=== PATIENT | male | born 1975 | race Native Hawaiian/Other Pacific Islander ===

== ENCOUNTER 2016-09-15 08:58 | Observation (INO) | payer BC, MEDICAID ==
[2016-09-15 09:03] VITALS: BMI 25.5
--- NOTE | 2016-09-15 09:25 | ED PDOC ---
Arrival/HPI - General Time Seen by Provider: 09/15/16 09:07 Historian: Patient - History of Present Illness Narrative History of Present Illness (Text): 09/15/16 09:02 Josh Hunt is a 41 year old male complaining of witnessed sinus pause on telemetry prior to arrival, requiring telemetry monitoring. Patient was seated in the recovery room of cardiology lab post-stress test for evaluation of occasional upper chest, when patient began to feel syncopal for about one minute. Patient denies ever losing consciousness. Patient's heart rate lowered significantly, code blue was called on the floor. Patient was brought to emergency department for further evaluation. Patient is currently asymptomatic and denies any other complaint at this time. PMD: Dr. Nolasco Time/Duration: Prior to Arrival Symptom Onset: Sudden Symptom Course: Improving Activities at Onset: Rest Context: Other (Recovery Room of Cardiology stress lab) Past Medical History - Provider Review Nursing Documentation Reviewed: Yes Family/Social History - Physician Review Nursing Documentation Reviewed: Yes Family/Social History: No Known Family HX Allergies/Home Meds Allergies/Adverse Reactions: Allergies No Known Allergies Allergy (Verified 09/15/16 08:52) Home Medications: Home Meds Medication Instructions Recorded Confirmed No Known Home Med 09/15/16 09/15/16 Review of Systems - Physician Review All systems were reviewed & negative as marked: Yes - Review of Systems Constitutional: Other (sinus pause). absent: Fevers, Night Sweats Eyes: absent: Vision Changes ENT: absent: Hearing Changes Respiratory: absent: SOB Cardiovascular: absent: Chest Pain Gastrointestinal: absent: Abdominal Pain Genitourinary Male: absent: Dysuria, Frequency Musculoskeletal: absent: Arthralgias Skin: absent: Rash Neurological: absent: Headache, Dizziness Endocrine: absent: Diaphoresis Hemo/Lymphatic: absent: Adenopathy Psychiatric: absent: Anxiety Physical Exam - Physical Exam Narrative Physical Exam (Text): Constitutional: No acute distress. Head: Normocephalic. Atraumatic. Eyes: PERRL. ENT: Moist mucous membranes. Neck: Supple. Cardiovascular: Regular rate. Chest: No tenderness. Respiratory: Clear to auscultation bilaterally. GI: Soft. Nontender. Nondistended. Back: No CVA tenderness. Musculoskeletal: No tenderness or swelling of extremities. Skin: No rash. Neurologic: Alert, no focal deficit. Vital Signs Temp Pulse Resp BP Pulse Ox 09/15/16 13:26 90 18 121/76 96 09/15/16 11:17 81 18 112/74 98 09/15/16 09:19 97.9 F 82 18 131/76 97 Medical Decision Making ED Course and Treatment: 09/15/16 09:28 Impression: 41 year old male presents emergency department with witnessed sinus pause on telemetry, requiring telemetry monitoring. currently asymptomatic. Plan: -- Chest X-ray -- Labs -- Reassess and disposition Progress Notes: EKG: Ordered, reviewed, and independently interpreted the EKG. Rate : 80 BPM Rhythm : NSR Interpretation : No ST-segment elevations or depressions, no T-wave inversions, normal intervals. 09/15/16 11:14 Chest X-ray: Dictator : Maury Ribeiro MD FINDINGS: LUNGS:No active pulmonary disease. PLEURA:No significant pleural effusion identified, no pneumothorax apparent. CARDIOVASCULAR:Normal. OSSEOUS STRUCTURES:No significant abnormalities. VISUALIZED UPPER ABDOMEN:Normal. OTHER FINDINGS:None. IMPRESSION: No active disease. - Lab Interpretations Lab Results: 09/15/16 09:10 09/15/16 09:10 Lab Results 09/15/16 09:24: POC Glucose (mg/dL) 85 09/15/16 09:10: Sodium 138, Potassium 4.1, Chloride 103, Carbon Dioxide 24, Anion Gap 15, BUN 18, Creatinine 1.0, Est GFR ( Amer) > 60, Est GFR (Non- Af Amer) > 60, Random Glucose 100, Calcium 9.2, Total Bilirubin 1.5 H, AST 27, ALT 38, Alkaline Phosphatase 58, Total Creatine Kinase 127, Troponin I < 0.01, Total Protein 7.1, Albumin 4.4, Globulin 2.7, Albumin/Globulin Ratio 1.6 09/15/16 09:10: WBC 4.9, RBC 5.91, Hgb 15.1, Hct 45.4, MCV 76.8 L, MCH 25.5, MCHC 33.3, RDW 14.6 H, Plt Count 207, MPV 9.7, Gran % 52.3, Lymph % (Auto) 38.4 H, [place] % (Auto) 6.4 H, Eos % (Auto) 2.5, Baso % (Auto) 0.4, Gran # 2.55, Lymph # 1.9, [place] # 0.3, Eos # 0.1, Baso # 0.02 I have reviewed the lab results: Yes - RAD Interpretation Radiology Orders: 09/15/16 09:07 CHEST PORTABLE [RAD] Stat - Scribe Statement The provider has reviewed the documentation as recorded by the Scribe Usha Oscar Provider Scribe Attestation: All medical record entries made by the Scribe were at my direction and personally dictated by me. I have reviewed the chart and agree that the record accurately reflects my personal performance of the history, physical exam, medical decision making, and the department course for this patient. I have also personally directed, reviewed, and agree with the discharge instructions and disposition. Disposition/Present on Arrival - Present on Arrival Any Indicators Present on Arrival: No - Disposition Have Diagnosis and Disposition been Completed?: Yes Diagnosis: Sinus pause Disposition: HOSPITALIZED Disposition Time: 10:03 Patient Plan: Observation, Telemetry Condition: FAIR
--- NOTE | 2016-09-15 09:39 | RAD ---
HISTORY: lightheadedness COMPARISON: No prior. FINDINGS: LUNGS: No active pulmonary disease. PLEURA: No significant pleural effusion identified, no pneumothorax apparent. CARDIOVASCULAR: Normal. OSSEOUS STRUCTURES: No significant abnormalities. VISUALIZED UPPER ABDOMEN: Normal. OTHER FINDINGS: None. IMPRESSION: No active disease.
[2016-09-15 09:40] LABS: BASO # 0.02 K/mm3 (0.0-2.0); BASO % 0.4 % (0.0-3.0); EOS # 0.1 (0.0-0.7); EOS % 2.5 % (1.5-5.0); GRAN # 2.55 (1.4-6.5); GRAN % 52.3 % (50.0-68.0); HEMOGLOBIN 15.1 gm/dL (14.0-18.0); LYMPH # 1.9 (1.2-3.4); LYMPH % 38.4 % (22.0-35.0); MEAN CELL VOLUME 76.8 fL (80.0-105.0); MEAN CORPUSCULAR HEMOGLOBIN 25.5 pg (25.0-35.0); MEAN CORPUSCULAR HGB CONC 33.3 g/dl (31.0-37.0); MEAN PLATELET VOLUME 9.7 fl (7.0-11.0); MONO # 0.3 (0.1-0.6); MONO % 6.4 % (1.0-6.0); PLATELET COUNT 207 10^3/uL (120.0-450.0); RBC 5.91 10^6/uL (3.5-6.1); RED CELL DISTRIBUTION WIDTH 14.6 % (11.5-14.5); WHITE BLOOD COUNT 4.9 10^3/ul (4.5-11.0)
[2016-09-15 09:47] LABS: ALB/GLOB RATIO 1.6 (1.1-1.8); ALBUMIN 4.4 g/dL (3.0-4.8); ALT/SGPT 38 U/L (7-56); AST/SGOT 27 U/L (15-59); BLOOD UREA NITROGEN 18 mg/dL (7-21); CALCIUM 9.2 mg/dL (8.4-10.5); GFR AFRICAN-AMERICAN > 60; GFR NON-AFRICAN AMERICAN > 60
[2016-09-15 09:58] LABS: TROPONIN I < 0.01 ng/mL
--- NOTE | 2016-09-15 12:27 | CARD ---
APPROVED REPORT EKG Measurement Heart [id number] <Conclusion> Normal sinus rhythm Normal ECG
[2016-09-15 13:29] VITALS: O2SAT 96
--- NOTE | 2016-09-15 13:43 | CP.PCM.HP ---
<RoberthMohit - Last Filed: 09/15/16 14:15> History of Present Illness - History of Present Illness History of Present Illness: Mohit Lepe D.O. PGY-2, Internal Medicine, Dr. Chirinos/Gaurav Service: H&P CC: bradycardia today during stress test 41yr old male presents to the [place] emergency department after having a sinus pause with symptomatic bradycardia. He was scheduled for a stress test with Dr. Nieves today. Upon completion of the test the patient states that he felt a falling sensation and cold chills. His heart rate was reported to have dropped to the 30s at this time and a Rapid Resonse and then Code Blue were called. Per ESTIMATOR AND DRAFTER team patient was awake and arousable and the Code Blue was cancelled and he was under the supervision of the Sprayer Hand during the whole thing. The patient was awake and the sensation passed within a few minutes. Blood pressure was also noted to be in the low 100s systolic during this time. Patient reports that he did have a similar "feeling" when he was in college 20+ years ago and was trekking up a mountain. Patient is currently physically active and goes swimming 2x/ week except for the last 2 weeks. Patient at this time denies any and all complaints including any chest pain, shortness of breath, N/V/D. PMD: Dr. Nolasco PMH: none PSH: none SH: never smoker, social alcohol, denies illicits FH: denies Meds: none Allergies: NKA Present on Admission - Present on Admission Any Indicators Present on Admission: No History of DVT/PE: No History of Uncontrolled Diabetes: No Urinary Catheter: No Decubitus Ulcer Present: No History Surgical Site Infection Following: None Review of Systems - Constitutional Constitutional: As Per HPI. absent: Fatigue, Fever, Headache, Weakness - EENT Eyes: absent: Blurred Vision, Other Visual Disturbances Ears: absent: Decreased Hearing, Ear Discharge Nose/Mouth/Throat: absent: Epistaxis, Nasal Congestion - Cardiovascular Cardiovascular: Slow Heart Rate. absent: Chest Pain, Chest Pain at Rest, Diaphoresis, Edema, Irregular Heart Rhythm, Leg Ulcers, Palpitations, Syncope - Respiratory Respiratory: absent: Cough, Dyspnea, Hemoptysis, Dyspnea on Exertion - Gastrointestinal Gastrointestinal: absent: Abdominal Pain, Diarrhea, Nausea, Vomiting - Genitourinary Genitourinary: absent: Change in Urinary Stream - Musculoskeletal Musculoskeletal: absent: Muscle Weakness, Myalgias - Integumentary Integumentary: absent: Pruritus, Rash - Neurological Neurological: absent: Dizziness, Syncope, Tingling - Endocrine Endocrine: Palpitations Past Patient History - Past Medical History & Family History Past Medical History?: No - Past Social History Smoking Status: Never Smoked Chewing Tobacco Use: No Cigar Use: No Alcohol: Social Drugs: Denies Home Situation {Lives}: With Family Domestic Violence: Negative - PSYCHIATRIC Hx Substance Use: No - SURGICAL HISTORY Hx Surgeries: No Meds Allergies/Adverse Reactions: Allergies Allergy/AdvReac Type Severity Reaction Status Date / Time No Known Allergies Allergy Verified 09/15/16 08:52 Physical Exam - Head Exam Head Exam: ATRAUMATIC, NORMOCEPHALIC - Eye Exam Eye Exam: EOMI, PERRL - ENT Exam ENT Exam: Mucous Membranes Moist, Normal Exam - Neck Exam Additional comments: soft, supple - Respiratory Exam Respiratory Exam: Clear to Auscultation Bilateral. absent: Rales, Rhonchi, Wheezes, Respiratory Distress - Cardiovascular Exam Cardiovascular Exam: REGULAR RHYTHM, RRR, +S1, +S2. absent: Diastolic murmur, Gallop, Rubs, Systolic Murmur - GI/Abdominal Exam GI & Abdominal Exam: Normal Bowel Sounds, Soft. absent: Distended, Tenderness - Extremities Exam Extremities exam: Positive for: normal capillary refill, pedal pulses present. Negative for: calf tenderness, pedal edema, tenderness - Back Exam Back exam: NORMAL INSPECTION - Neurological Exam Neurological exam: Alert, CN II-XII Intact, Oriented x3 - Skin Skin Exam: Dry, Intact, Normal Color, Warm Results - Vital Signs Recent Vital Signs: Last Vital Signs Temp 97.9 F 09/15/16 09:19 Pulse 90 09/15/16 13:26 Resp 18 09/15/16 13:26 BP 121/76 09/15/16 13:26 Pulse Ox 96 09/15/16 13:26 - Labs Result Diagrams: 09/15/16 09:10 09/15/16 09:10 Assessment & Plan - Assessment and Plan (Free Text) Assessment: 41 year old male with no PMH who presented for a outpatient stress test and subsequently had an episode of symptomatic bradycardia and a sinus pause Plan: Telemetry for 24hr observation Asymptomatic at this time, however during a small period of induced meditation and quiet, patient's heart rate maintained in the 70s but a sinus pause was again visualized Recheck CBC, CMP, as well Thyroid panel, Lipid panel, Mg, Phos and urinalysis Echo was done on 09/11/2016 and showed an ejection fraction of 55%-65% with mild MR and mild TR Cardio Dr. Nieves consulted OOB Vitals q4h SCDs HHD Patient was seen and examined and case was discussed at length with attending physician. - Date & Time Date: 09/15/16 Time: 12:30 Decision To Admit - Pt Status Changed To: Hospital Disposition Of: Observation - . Bed Request Type: Telemetry <Conrado Nolasco - Last Filed: 09/25/16 17:09> Results - Vital Signs Recent Vital Signs: Last Vital Signs Temp 97.9 F 09/15/16 17:47 Pulse 83 09/15/16 17:47 Resp 18 09/15/16 17:47 BP 119/55 L 09/15/16 17:47 Pulse Ox 96 09/15/16 13:26 - Labs Result Diagrams: 09/15/16 09:10 09/15/16 09:10 Attending/Attestation - Attestation I have personally seen and examined this patient.: Yes I have fully participated in the care of the patient.: Yes I have reviewed all pertinent clinical information: Yes Notes (Text): 09/25/16 17:09 Medical record note made by the resident after discussion with my direction and input after the patient was personally seen and examined by me. I have reviewed the chart and agree that the record accurately reflects by personal performance of the history, physical exam, data review, and medical decision-making, in the course for the patient. I have also personally directed the plan of care.
--- NOTE | 2016-09-15 14:34 | CP.PCM.PN ---
Subjective - Date & Time of Evaluation Date of Evaluation: 09/15/16 Time of Evaluation: 08:34 - Subjective Subjective: Rapid Response Note Rapid response called at 8:34am which was subsequently changed to a Code Blue. On arrival, code blue was cancelled however rapid response still requested. Patient was found laying on stretcher alert and oriented x3. He responded to questions appropriately and reported feeling lightheaded however denied passing out. His blood pressure was 106/56, heart rate 81bpm and blood glucose 95 on initial evaluation. Per nursing present, patient had completed an outpatient stress test and subsequently felt lightheaded. His heart rate during the stress test had been in the 30's and his EKG showed junctional rhythm/sinus arrhythmia. An IV was immediately placed, stat labs were drawn and normal saline was started. He was able to follow commands appropriately and was subsequently transferred down the emergency room for further evaluation. Objective - Vital Signs/Intake and Output Vital Signs (last 24 hours): Temp Pulse Resp BP Pulse Ox 97.9 F 90 18 121/76 96 09/15/16 09:19 09/15/16 13:26 09/15/16 13:26 09/15/16 13:26 09/15/16 13:26 - Constitutional Appears: Non-toxic, No Acute Distress - Head Exam Head Exam: ATRAUMATIC, NORMAL INSPECTION, NORMOCEPHALIC - Eye Exam Eye Exam: EOMI, PERRL - ENT Exam ENT Exam: Mucous Membranes Moist - Cardiovascular Exam Cardiovascular Exam: Bradycardia, +S1, +S2. absent: Gallop, Rubs, Murmur - GI/Abdominal Exam GI & Abdominal Exam: Soft. absent: Distended, Firm, Guarding, Rigid, Tenderness , Rebound - Extremities Exam Extremities Exam: Normal Inspection. absent: Pedal Edema - Neurological Exam Neurological Exam: Alert, Awake, CN II-XII Intact (grossly intact), Oriented x3 - Psychiatric Exam Psychiatric exam: Normal Affect, Normal Mood - Skin Skin Exam: Dry, Intact, Normal Color, Warm Assessment and Plan - Assessment and Plan (Free Text) Plan: 1. Pre-syncope 2. Sinus bradycardia -STAT CBC/CMP/Troponin -EKG reviewed; HR dropped to as low as the 30's with junction rhythm/sinus arrhythmia -IVF with normal saline -Blood pressure after starting IVF improved to 111/68 -Patient subsequently transferred to the ER for further evaluation/treatment -Cardiology, Dr. Nieves present during event and evaluated patient as well Case discussed with attending, Dr. Armstrong
[2016-09-15 16:51] LABS: URINE BILIRUBIN NEGATIVE (NEGATIVE); URINE BLOOD NEGATIVE (NEGATIVE); URINE GLUCOSE (UA) NEGATIVE (NEGATIVE); URINE LEUKOCYTE ESTERASE NEGATIVE Leu/uL (NEGATIVE); URINE NITRATE NEGATIVE (NEGATIVE); URINE PROTEIN NEGATIVE mg/dL (<30 mg/dL); URINE UROBILINOGEN 0.2 E.U./dL (<1 E.U./dL)
[2016-09-15 16:59] LABS: URINE APPEARANCE CLEAR (CLEAR); URINE COLOR LIGHT YELLOW (YELLOW)
--- NOTE | 2016-09-16 06:07 | CON ---
DATE: 09/15/2016 HISTORY OF PRESENT ILLNESS: The patient is a 41-year-old male with no past medical history, no hypertension, no diabetes mellitus, and is on no medication, who presented for an elective stress test from his primary care doctor's office. The patient had experienced one episode of chest discomfort and dyspnea in the past. He suffers from occasional palpitations. No previous hospitalization is noted. SOCIAL HISTORY: The patient works in [employer] and does not smoke. REVIEW OF SYSTEMS: A 14-point review of systems was reviewed in detail. No cardiac symptomatology is noted. The stress test, which was negative for ischemia, was complicated by an episode of sinus bradycardia leading to sinus arrest with zohaib escape rhythm during recovery of the stress test. The bradycardia was hemodynamically significant, which was treated conservatively with IV fluids, raising his legs, which the patient spontaneously recovered to normal sinus rhythm with resolution of his symptoms. PHYSICAL EXAMINATION: GENERAL: Currently, the patient is asymptomatic. VITAL SIGNS: Blood pressure 131/76, the heart rate is in the 80s. NECK: Negative JVD. LUNGS: Without rales. HEART: S1, S2. EXTREMITIES: Without edema. EKG is unremarkable. LABORATORY DATA: Hemoglobin is 15.1. The glucose is 85. IMPRESSION: 1. Syncope secondary to #2. 2. Transient sinus arrest and pause after exercise testing. 3. Palpitations. PLAN: Given these findings, we will observe the patient on telemetry for 24-hours. IV fluids have been ordered. At some point, the patient may need EP studies, which needs to include sinus node recovery time. Sunny Nieves MD
[2016-09-16 11:58] VITALS: BP 119/55; PULSE 83; RESP 18; TEMP 97.9
== END 2016-09-15 19:02 | disposition home or self-care (01) ==
LOC: ED 08:58 → ERH 12:32 → 2RSO 14:52
PROVIDERS: ADMIT Internal Medicine; ATTEND Internal Medicine
DX: I45.5 Other specified heart block (principal); R00.1 Bradycardia, unspecified; R00.2 Palpitations; R55 Syncope and collapse
CPT/HCPCS: 71010; 80053; 81003; 82550; 82948; 84484; 85025; 93005; 99285; G0378